=== PATIENT | female | born 1930 | race Caucasian/White ===

== ENCOUNTER 2016-07-26 10:45 | Inpatient (IN) ==
[2016-07-26 11:48] LABS: Basophils # 0.1 10*3/uL (0.0-0.2); Basophils % 0.8 % (0.0-0.8); Eosinophils # 0.1 10*3/uL (0.0-0.87); Hematocrit 41.5 VOL% (35.7-47.0); Hemoglobin 12.8 GM/DL (12.0-16.0); Immature Granulocytes % 0.2 %; Immature Granulocytes Absolute 0.02 #; Lymphocytes # 2.5 10*3/uL (1.4-4.0); Mean Corpuscular HGB Conc 30.8 GM/DL (32-36); Mean Corpuscular Hemoglobin 28 PG (27-34); Mean Corpuscular Volume 91.4 FL (87-102); Monocytes # 0.8 10*3/uL (0.11-0.8); Monocytes % 8.8 % (1.7-12.7); Neutrophils # 5.7 10*3/uL (1.4-7.4); Neutrophils % 62.2 % (38.7-73.9); Platelet Count 234 T/CUMM (130-400); Red Blood Count 4.54 MC/CUMM (3.8-5.5); Red Cell Distribution Width 13.7 % (9.3-17.3); White Blood Count 9.2 T/CUMM (4-12)
[2016-07-26 11:52] LABS: Apearance,Urine CLEAR (Clear); Bilirubin,Urine Negative (Negative); Blood, Urine Negative (Negative); Glucose,Urine (UA) Negative (Negative); Ketones,Urine Negative (Negative); Nitrite,Urine Negative (Negative); Protein,Urine Negative; RBC,Urine <1 /HPF (0-4); Urine Color Yellow (Yellow); Urine Specific Gravity 1.008 (1.001-1.035); Urine Urobilinogen < 2.0 EU/DL (0.2-1.0); WBC,Urine <1 /HPF (0-6)
[2016-07-26 12:14] LABS: Albumin 4.1 G/DL (3.4-5.0); Bilirubin,Total 1.1 MG/DL (0.2-1.0); Calcium 9.9 MG/DL (8.5-10.1); Osmolality,Calculated 287.1 MOS/KG (273-304); Potassium 3.7 MMOL/L (3.5-5.1); Total Protein 7.5 G/DL (6.4-8.3)
--- NOTE | 2016-07-26 12:17 | XRay Report ---
XR abdomen 2V Indication: Abdominal pain. Abdomen 3 views: Comparison none. Scoliosis noted. No small bowel dilatation shown. Some stool and gas is present in the colon. No evidence of free air. Impression: Nonspecific bowel gas pattern. PROCEDURE INTERPRETED AT [facility] DEPARTMENT OF RADIOLOGY Final Report Signed by: Stevie Ruelas M.D.
--- NOTE | 2016-07-26 13:03 | Emergency Department Note ---
Arrival - Arrival Chief Complaint: Non-Specific Stated Complaint: constipated,bladder infection couple wks ago ED Nursing Triage Note: Pt states that she has not had a bowel movement in 3 days - family states that she has been seen here in ER 4 times in last 10 days for similar c/o - pt states that she started taking macrobid x 2 days ago for UTI Mode of Arrival: Wheelchair Source: Patient Time Seen by Provider: 07/26/16 11:11 - History of Present Illness HPI Narrative: 85 y/o female presents to the ER complaining of constipation, dysuria, rectal burning, dark stool, and lower abdominal pain. Symptoms started 2-3 weeks ago. Family states patient has been seen in the ER 4 times in the last 10 days for the similar complaints. Patient states she has been diagnosed with constipation and a UTI. Currently taking laxatives for constipation and Macrobid for UTI but abdominal pain has not improved. Family states they think she needs to be admitted. Past medical history significant for dementia, tachycardia, CHF, HTN, , COPD, GERD, and Hyst. Onset (ago): week(s) (2) Severity: mild Quality: cramping Date of Last Menstrual Period: hyster Allergies/Adverse Reactions: Allergies Allergy/AdvReac Type Severity Reaction Status Date / Time quinine Allergy RASH Verified 12/15/14 16:23 propofol AdvReac Severe TEMP SPIKE Verified 12/15/14 16:57 103/UNRESPONSIVE simvastatin [From Zocor] AdvReac Unknown Unknown/Unable Verified 12/15/14 16:23 to obtain Home Medications: Home Medications Medication Instructions Recorded Confirmed Type Amitriptyline [Elavil] 25 mg PO BEDTIME 08/26/14 07/26/16 History Donepezil [Aricept] 10 mg PO BEDTIME 08/26/14 07/26/16 History Levothyroxine Sodium 75 mcg PO DAILY 08/26/14 07/26/16 History Carvedilol [Coreg] 12.5 mg PO BID W/MEALS #60 tablet 08/29/14 07/26/16 Rx Potassium Chloride Cap/Tab [K Dur] 20 meq PO DAILY #30 tablet 08/29/14 07/26/16 Rx Allopurinol [Zyloprim] 100 mg PO DAILY 10/20/14 07/26/16 History Aspirin Chew Tab 81 mg PO DAILY #30 tablet 10/21/14 07/26/16 Rx Pantoprazole Sodium [Protonix] 40 mg PO DAILY #30 granpkt. 10/21/14 07/26/16 Rx HYDROcodone/ACETAMIN 5-325 [[place] 1 tablet PO Q6H PRN #20 tablet 12/06/15 Rx 5-325] Cyclobenzaprine [Flexeril] 10 mg PO TID #30 tablet 12/14/15 07/26/16 Rx Docusate Sodium Cap [Colace Cap] 100 mg PO BID 12/14/15 07/26/16 History Furosemide Tab [Lasix Tab] 40 mg PO QAM 12/14/15 07/26/16 History Meloxicam [Meloxicam] 7.5 mg PO DAILY 12/14/15 07/26/16 History Clindamycin Cap [Cleocin Cap] 300 mg PO Q8HR #20 capsule 07/21/16 07/26/16 Rx Phenazopyridine HCl [Pyridium] 200 mg PO TID #30 tablet 07/21/16 07/26/16 Rx Nitrofurantoin Macro/[place] 100 mg PO BID 07/26/16 07/26/16 History [Macrobid] Review of System - Review of System 12 point system: reviewed and no additional remarkable complaints except as stated - Review of System Gastrointestinal: Present: abdominal pain, constipation Genitourinary female: Present: dysuria Medical,Surgical,& Family Hx - Medical History Cardio: History of: Cardiac Dysrhythmia (HX TACHYCARDIA/HX ?ATRIAL FIB), CHF, Hypertension, Valvular Heart Disease (AORTIC VALVE DISORDER PER DR. VILLASENOR'S H&P ), Cardiovascular Problems (DR. VILLAFUERTE; CARDIOMYOPATHY) Psychological: History of: Anxiety Disorders Neurology: History of: Dementia No history of: Seizures HEENT: History of: Ear Problem (PARTIAL UPPER AND LOWER?), Eye Problem (GLASSES FOR TV) Endocrine: Comment Only: Diabetes Mellitus (NIDDM) (ELEVATED FASTING GLUCOSE 12/15/14 JACKLYN CLEARANCE) Rheumatology: History of;: Gout Respiratory: History of: Bronchitis, COPD Genitourinary: History of: Recurring Urinary Tract Infections Gastrointestinal: History of: GERD, Gastrointestinal Bleed (DR. CHANEL COULD NOT LOCATE BLEEDING-CONTRIBUTING TO ELIQUIS) Musculoskeletal: History of: Musculoskeletal Problems (ARTHRITIS) Hematology: History of: Anemia No history of: Blood Transfusion Reaction (2 UNITS 08/2014) Other: History of: Anesthesia Reactions (PROPROFAL 103 TEMP UNRESPONSIVE-? MALIGNANT HYPERTHERMIA), Cancer (HX MELANOMA LEG ) - Surgical History Thoracic Surgeries: Patient denies;: Organ Transplant, Lobectomy Abdominal Surgeries: Surgical HX of: Colonoscopy (09/10), EGD (09/10) Reproductive Surgeries: Surgical HX of;: Gynecologic Surgery, Hysterectomy Orthopedic Surgeries: Surgical HX of;: Orthopedic Surgery (CARPAL TUNNEL DELIA / GANGLION CYST REMOVAL LT FOR 11/2014), Spinal Surgery (Back surgery) - Family History Family History: Reports;: Family Diabetes, Family Heart Disease, Family Hypertension Denies;: Family Cancer - Social History Smoking Status: Former smoker Frequency of Alcohol Use: None Type of Drug Use: None Exam Vital Signs: Vital Signs Temperature 98.2 F 07/26/16 11:19 Pulse Rate 57 L 07/26/16 12:30 Respiratory Rate 20 07/26/16 12:30 Blood Pressure 183/65 07/26/16 12:30 O2 Sat by Pulse Oximetry 100 07/26/16 12:30 - General General appearance: alert, in no apparent distress - ENT ENT exam: Present: normal exam, normal oropharynx, mucous membranes moist - Chest Chest inspection: Present: normal inspection - Respiratory Respiratory exam: Present: normal lung sounds bilaterally - Cardiovascular Cardiovascular exam: Present: regular rate, normal rhythm, normal heart sounds - Abdominal Exam Abdominal exam: Present: soft, tenderness (RLQ), rebound, normal bowel sounds - Rectal Exam Rectal exam: Present: normal inspection, normal rectal tone. Absent: fecal impaction - Extremities Exam Extremities exam: Present: normal inspection, full ROM - Back Exam Back exam: Absent: CVA tenderness (R), CVA tenderness (L) - Neurological Exam Neurological exam: Present: alert, oriented X3 - Psychiatric Psychiatric exam: Present: normal affect, normal mood - Skin Skin exam: Present: warm, dry Course - Consultations Consultation #1: Hospitalist Time: 15:00 (Will admit to Hospitalist ) Results - Labs CBC & BMP: 07/26/16 11:33 07/26/16 11:33 Lab Results: I have reviewed the patients labs Labs: UA: WNL - Diagnostic Findings Procedure: KUB x-ray: image reviewed by me, report reviewed by me (no acute abnormality ), CT Abdomen and Pelvis: image reviewed by me, report reviewed by me (right adrenal mass; can not exclude neoplasm) Disposition Clinical Impression: Abdominal pain, Dark stools Case discussed with: patient Disposition: Still a Patient Condition: Stable
--- NOTE | 2016-07-26 13:48 | CT Report ---
CT abdomen pelvis w con Indication: Right lower quadrant abdominal pain, rebound tenderness, dysuria. CT ABDOMEN AND PELVIS WITH CONTRAST DLP: 935 mGy*cm. One or more of the following dose reduction techniques was used: Automated exposure control, adjustment of the mA and/or kV according the patient size, or use of iterative reconstruction techniques. Comparison: None Technique: Axial CT images of the abdomen and pelvis were obtained with IV contrast; Omnipaque 350, 100 cc. Oral contrast was not administered. Abdomen: 15 mm vascular blush along the lateral aspect of the right liver lobe is present, nonspecific. Immediately washes out on delayed images. No solid liver lesion shown. Gallbladder somewhat contracted but unremarkable. Spleen, pancreas, left adrenal gland and left kidney are unremarkable. 16 x 11 mm right adrenal mass is present, 114 Hounsfield units. Cortical scar involves midpole right kidney. Right kidney is otherwise unremarkable. Heart is minimally enlarged. Aside from some mild scarring, lung bases are clear. No bowel obstruction shown. Pelvis: The appendix is not identified. No right lower quadrant inflammation shown focally. Urinary bladder and rectosigmoid colon are unremarkable. No mesenteric inflammation. No free fluid, free air or lymphadenopathy. Aorta is not aneurysmal. Degenerative changes lumbar spine are moderately severe. Impression: 1. No acute intra-abdominal or pelvic pathology. 2. Nonspecific 15 mm vascular blush lateral aspect right liver lobe, with rapid washout. 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 3. 16 x 11 mm right adrenal mass, 114 Hounsfield units. Cannot exclude neoplasm. 6-8 week follow-up CT recommended. 4. Cortical scarring right kidney. PROCEDURE INTERPRETED AT [facility] DEPARTMENT OF RADIOLOGY Final Report Signed by: Stevie Ruelas M.D.
--- NOTE | 2016-07-26 15:27 | Hospitalist History & Physical ---
<Wiliam Canseco - Last Filed: 07/26/16 15:23> Assessment and Plan - Time spent with patient Time spent with patient: Greater than 30 minutes (1) Abdominal pain Status: Acute Assessment and plan: Rebound tenderness to right lower quadrant. Abdominal x-ray negative. CT does reveal 16 x 11 mm mass to the right adrenal gland. Current Visit: Yes (2) Rectal burning Status: Acute Current Visit: Yes (3) Perceived constipation Status: Acute Assessment and plan: Abdominal x-ray reveals nonspecific gas patterns. Patient reports feelings of constipation with continued straining for the last 2 days. We will continue to monitor and consult GI if necessary. Current Visit: Yes History of Present Illness Chief complaint: abdominal pain; constipation History of present illness: Ms. Patel is a 85 year old female with a history significant for UTI, hypertension, CHF, melanoma presents to the ER with complaints of abdominal pain , feelings of constipation, dysuria for approximately 2 days. Patient states that she initially experienced dysuria about 4 weeks ago for which she saw Dr. Cabrera. She reports that this burning sensation continued for approximately 4 weeks until she finally went back to Dr. Cabrera's office and was given a prescription for Macrobid. She states that she has taken Pepto-Bismol and Ex- Lax for her constipation symptoms with little to no relief. She states that she has been straining to use the bathroom for the last 2 days. She does report that the times that she has had a bowel movement, her stool was dark. On exam, the patient is lying in bed in no acute distress. She reports mild abdominal pain rating it 5 out of 10. She does have rebound tenderness to deep palpation to the right lower quadrant. Also of note patient has a significant area of bruising to the left lower quadrant is tender. Patient reports that she fell onto a chair 2 days ago while in the kitchen, sustaining a laceration to her left elbow as well as the bruise mentioned above. Abdominal x-ray reveals nonspecific bowel gas pattern. Abdominal CT reveals a 16 x 11 mm right adrenal mass and cortical scarring on the right kidney. This does not appear to be related to the patient's current complaints. Patient believes she still has her appendix, however she does have a history of hysterectomy. Given the patient's frequent visits to the ER in the last 2 weeks with similar complaints , we will admit her to the hospital medicine service for further evaluation and management of this abdominal pain. Home Medications Medication Instructions Recorded Confirmed Type Amitriptyline [Elavil] 25 mg PO BEDTIME 08/26/14 07/26/16 History Donepezil [Aricept] 10 mg PO BEDTIME 08/26/14 07/26/16 History Levothyroxine Sodium 75 mcg PO DAILY 08/26/14 07/26/16 History Carvedilol [Coreg] 12.5 mg PO BID W/MEALS #60 tablet 08/29/14 07/26/16 Rx Potassium Chloride Cap/Tab [K Dur] 20 meq PO DAILY #30 tablet 08/29/14 07/26/16 Rx Allopurinol [Zyloprim] 100 mg PO DAILY 10/20/14 07/26/16 History Aspirin Chew Tab 81 mg PO DAILY #30 tablet 10/21/14 07/26/16 Rx Pantoprazole Sodium [Protonix] 40 mg PO DAILY #30 granjwkt. 10/21/14 07/26/16 Rx HYDROcodone/ACETAMIN 5-325 [[place] 1 tablet PO Q6H PRN #20 tablet 12/06/15 Rx 5-325] Cyclobenzaprine [Flexeril] 10 mg PO TID #30 tablet 12/14/15 07/26/16 Rx Docusate Sodium Cap [Colace Cap] 100 mg PO BID 12/14/15 07/26/16 History Furosemide Tab [Lasix Tab] 40 mg PO QAM 12/14/15 07/26/16 History Meloxicam [Meloxicam] 7.5 mg PO DAILY 12/14/15 07/26/16 History Clindamycin Cap [Cleocin Cap] 300 mg PO Q8HR #20 capsule 07/21/16 07/26/16 Rx Phenazopyridine HCl [Pyridium] 200 mg PO TID #30 tablet 07/21/16 07/26/16 Rx Nitrofurantoin Macro/[place] 100 mg PO BID 07/26/16 07/26/16 History [Macrobid] Allergies Allergy/AdvReac Type Severity Reaction Status Date / Time quinine Allergy RASH Verified 12/15/14 16:23 propofol AdvReac Severe TEMP SPIKE Verified 12/15/14 16:57 103/UNRESPONSIVE simvastatin [From Zocor] AdvReac Unknown Unknown/Unable Verified 12/15/14 16:23 to obtain Medical,Surgical,& Family Hx - Medical History Cardio: History of: Cardiac Dysrhythmia (HX TACHYCARDIA/HX ?ATRIAL FIB), CHF, Hypertension, Valvular Heart Disease (AORTIC VALVE DISORDER PER DR. VILLASENOR'S H&P ), Cardiovascular Problems (DR. VILLAFUERTE; CARDIOMYOPATHY) Psychological: History of: Anxiety Disorders Neurology: History of: Dementia No history of: Seizures HEENT: History of: Ear Problem (PARTIAL UPPER AND LOWER?), Eye Problem (GLASSES FOR TV) Endocrine: Comment Only: Diabetes Mellitus (NIDDM) (ELEVATED FASTING GLUCOSE 12/15/14 JACKLYN CLEARANCE) Rheumatology: History of;: Gout Respiratory: History of: Bronchitis, COPD Genitourinary: History of: Recurring Urinary Tract Infections Gastrointestinal: History of: GERD, Gastrointestinal Bleed (DR. CHANEL COULD NOT LOCATE BLEEDING-CONTRIBUTING TO ELIQUIS) Musculoskeletal: History of: Musculoskeletal Problems (ARTHRITIS) Hematology: History of: Anemia No history of: Blood Transfusion Reaction (2 UNITS 08/2014) Other: History of: Anesthesia Reactions (PROPROFAL 103 TEMP UNRESPONSIVE-? MALIGNANT HYPERTHERMIA), Cancer (HX MELANOMA LEG ) - Surgical History Thoracic Surgeries: Patient denies;: Organ Transplant, Lobectomy Abdominal Surgeries: Surgical HX of: Colonoscopy (09/10), EGD (09/10) Reproductive Surgeries: Surgical HX of;: Gynecologic Surgery, Hysterectomy Orthopedic Surgeries: Surgical HX of;: Orthopedic Surgery (CARPAL TUNNEL DELIA / GANGLION CYST REMOVAL LT FOR 11/2014), Spinal Surgery (Back surgery) - Family History Family History: Reports;: Family Diabetes, Family Heart Disease, Family Hypertension Denies;: Family Cancer - Social History Smoking Status: Former smoker Frequency of Alcohol Use: None Type of Drug Use: None Marital Status: Lives With:: Granddaughter Functional capacity: independent ambulation - Constitutional Constitutional: Absent: fatigue, fever(s), frequent falls, headache(s) - EENT Eyes: Absent: blurry vision, loss of vision Ears: Absent: decreased hearing, ear pain Nose, mouth and throat: Absent: dysphagia, epistaxis, headache(s) - Cardiovascular Cardiovascular: Absent: chest pain at rest, chest pain with activity, dyspnea, dyspnea on exertion - Respiratory Respiratory: Absent: cough, dyspnea, wheezing - Gastrointestinal Gastrointestinal: Present: abdominal pain, constipation, melena, nausea - Genitourinary Genitourinary: Present: dysuria. Absent: difficulty urinating, flank pain, hematuria - Musculoskeletal Musculoskeletal: Absent: back pain, muscle cramps - Neurological Neurological: Absent: abnormal gait, abnormal speech, behavioral changes, confusion, headache(s), numbness, syncope - Psychiatric Psychiatric: Absent: anxiety, confusion, depression - Endocrine Endocrine: Absent: cold intolerance, fatigue, heat intolerance - Hematologic/Lymphatic Hematologic/Lymphatic: Absent: easy bleeding, easy bruising Exam - Constitutional Vitals: Period Temp Pulse Resp BP Sys/[place] Pulse Ox Last 24 Hr 98.1 F-98.2 F 57-69 18-20 163-183/65-75 96-100 Exam: General appearance: normal weight, no acute distress - Head Head exam: Present: normocephalic, atraumatic - Eye Eye exam: Present: EOMI. Absent: conjunctival injection, nystagmus Pupils: Present: MIL[place], normal accommodation - ENT ENT exam: Present: normal exam, normal external ear exam - Neck Neck exam: Present: normal inspection. Absent: lymphadenopathy, tenderness, thyromegaly - Respiratory Respiratory exam: Present: clear to auscultation bilaterally. Absent: rales, rhonchi, wheezes - Cardiovascular Cardiovascular exam: Present: regular rate and rhythm. Absent: carotid bruit, gallop, rubs - GI/Abdominal GI/Abdominal exam: Present: hyperactive bowel sounds. Absent: ascites, distended, mass - Extremities Exam Extremities exam: Present: normal inspection, normal capillary refill. Absent: edema - Back Exam Back exam: Absent: CVA tenderness (L), CVA tenderness (R) - Neurological Exam Neurological exam: Present: alert, oriented X3 - Psychiatric Psychiatric exam: Present: normal affect, normal mood - Skin Skin exam: Present: ecchymosis to LLQ, laceration to left elbow, warm, dry Results - Labs CBC & BMP: 07/26/16 11:33 07/26/16 11:33 Lab Results: I have reviewed the past 24 hour labs - Diagnostic Findings Procedure: Abdominal x-ray: image reviewed by me, report reviewed by me, CT Abdomen and Pelvis: image reviewed by me, report reviewed by me <Beck Rojas - Last Filed: 07/26/16 16:42> Assessment and Plan - Time spent with patient Time spent with patient: Less than 30 minutes History of Present Illness History of present illness: Patient seen and examined along with SERGIO Canseco, agree with history, assessment and plan as documented. Patient has been on macrobid for 2 days to treat a urinary tract infection. Her pain is in the lower abdomen, band like pattern. She reports diarrhea 3+ days ago, followed by constipation now. Her KUB and CT are actually unimpressive for bowel or any other acute process. She also reports vomiting a clear liquid today. Exam - Constitutional Vitals: Period Temp Pulse Resp BP Sys/[place] Pulse Ox Last 24 Hr 98.1 F-98.2 F 57-69 18-20 163-183/65-75 96-100 Results - Labs CBC & BMP: 07/26/16 11:33 07/26/16 11:33
[2016-07-26] MEDS ORDERED: SIMETHICONE CHEW 125 MG TABLET PO PRN (18:00)
[2016-07-26] MEDS ORDERED: LACTULOSE 20 GM/30 ML UDCUP PO PRN (18:00)
[2016-07-26] MEDS ORDERED: ENOXAPARIN 40 MG/0.4 ML SYRINGE SUBCUT SCH (18:00)
[2016-07-26] MEDS ORDERED: ONDANSETRON 4 MG/2 ML VIAL IV PRN (18:00)
[2016-07-26] MEDS ORDERED: ACETAMINOPHEN 325 MG TABLET PO PRN (18:00)
[2016-07-26] MEDS: SODIUM CHLORIDE 0.9% 1,000 ML IV SCH (18:19)
[2016-07-26] MEDS: CARVEDILOL 12.5 MG TABLET PO SCH (18:42)
[2016-07-26] MEDS: CIPROFLOXACIN INJ 400 MG in PREMIX 1 EACH IV SCH (18:43)
[2016-07-26] MEDS: DOCUSATE SODIUM 100 MG CAPSULE PO SCH (20:11)
[2016-07-26] MEDS ORDERED: DONEPEZIL 10 MG TABLET PO SCH (21:00)
[2016-07-26] MEDS ORDERED: AMITRIPTYLINE 25 MG TABLET PO SCH (21:00)
[2016-07-27 03:38] LABS: Basophils # 0.1 10*3/uL (0.0-0.2); Basophils % 0.9 % (0.0-0.8); Eosinophils # 0.1 10*3/uL (0.0-0.87); Eosinophils % 1.9 % (0.00-10.9); Hematocrit 36.6 VOL% (35.7-47.0); Hemoglobin 11.3 GM/DL (12.0-16.0); Immature Granulocytes % 0.3 %; Immature Granulocytes Absolute 0.02 #; Lymphocytes # 2.7 10*3/uL (1.4-4.0); Lymphocytes % 39.2 % (21.3-54.2); Mean Corpuscular HGB Conc 30.9 GM/DL (32-36); Mean Corpuscular Hemoglobin 28 PG (27-34); Mean Platelet Volume 11.8 FL (9.6-12.0); Monocytes # 0.8 10*3/uL (0.11-0.8); Monocytes % 11.3 % (1.7-12.7); Neutrophils # 3.2 10*3/uL (1.4-7.4); Neutrophils % 46.4 % (38.7-73.9); Platelet Count 221 T/CUMM (130-400); Red Blood Count 4.02 MC/CUMM (3.8-5.5); White Blood Count 6.9 T/CUMM (4-12)
[2016-07-27 04:21] LABS: Calcium 9.1 MG/DL (8.5-10.1)
[2016-07-27 04:22] LABS: Osmolality,Calculated 285.1 MOS/KG (273-304); Potassium 3.8 MMOL/L (3.5-5.1); Thyroid Stimulating Hormone 2.37 uIU/ml (0.358-3.74)
[2016-07-27] MEDS: SODIUM CHLORIDE 0.9% 1,000 ML IV SCH (05:52)
[2016-07-27] MEDS: CIPROFLOXACIN INJ 400 MG in PREMIX 1 EACH IV SCH (05:53)
[2016-07-27] MEDS ORDERED: ASPIRIN CHEW 81 MG TABLET PO SCH (09:00)
[2016-07-27] MEDS ORDERED: LEVOTHYROXINE 75 MCG TABLET PO SCH (09:00)
[2016-07-27] MEDS ORDERED: ALLOPURINOL 100 MG TABLET PO SCH (09:00)
[2016-07-27] MEDS ORDERED: PANTOPRAZOLE 40 MG TABLET PO SCH (09:00)
[2016-07-27 09:09] VITALS: BP 172/71
[2016-07-27] MEDS: DOCUSATE SODIUM 100 MG CAPSULE PO SCH (09:50)
[2016-07-27] MEDS: CARVEDILOL 12.5 MG TABLET PO SCH (09:50)
--- NOTE | 2016-07-27 10:04 | Discharge Summary ---
<Isabel Wallace - Last Filed: 07/27/16 10:11> Hospital Course - Hospital Course Hospital Course: Ms. Patel is a 85 yr old female patient that presented to the ED with complaints of dark stool, rectal, and lower abdominal pain. Pt has a pmh of dementia, tachycardia, CHF, htn, COPD, GERD, and hysterectomy. Pt. stated that the symptoms started 2-3 weeks ago. Pt. also reports receiving presciption for Macrobid from Dr. Pantoja because of issues with dysuria. Pt. and family reported that the pt has been seen in the ER 4 times in the past 10 days for similar complaints. Abdominal x-ray in ER reveals nonspecific bowel gas pattern. Abdominal CT reveals a 16 x 11 mm right adrenal mass and cortical scarring on the right kidney is not believed to be related to the current symptoms. Due to the frequent visits to the ED, the patient was admitted to the hospitalist program. The patient had no complaints overnight and reported bowel movements to the MD. Pt was stable this am and is ready for discharge. Pt. is to follow up with PCP Dr. Michelle in 1 week for evaluation in reference to the mass. Specialty Discharge - Follow Up or Referrals Follow up with: Rocco Michelle MD [Primary Care Provider] - 1 Week Discharge Plan - Discharge Medications New Docusate Sodium Cap [Colace Cap] 100 mg PO BID capsule Continue Amitriptyline [Elavil] 25 mg PO BEDTIME Levothyroxine Sodium 75 mcg PO DAILY Donepezil [Aricept] 10 mg PO BEDTIME Carvedilol [Coreg] 12.5 mg PO BID W/MEALS #60 tablet Potassium Chloride Cap/Tab [K Dur] 20 meq PO DAILY #30 tablet Allopurinol [Zyloprim] 100 mg PO DAILY Aspirin Chew Tab 81 mg PO DAILY #30 tablet Pantoprazole Sodium [Protonix] 40 mg PO DAILY #30 granpkt. HYDROcodone/ACETAMIN 5-325 [[place] 5-325] 1 tablet PO Q6H PRN #20 tablet PRN Reason: Pain Docusate Sodium Cap [Colace Cap] 100 mg PO BID Furosemide Tab [Lasix Tab] 40 mg PO QAM Meloxicam 7.5 mg PO DAILY Cyclobenzaprine [Flexeril] 10 mg PO TID #30 tablet Nitrofurantoin Macro/[place] [Macrobid] 100 mg PO BID Discontinued Phenazopyridine HCl [Pyridium] 200 mg PO TID #30 tablet Clindamycin Cap [Cleocin Cap] 300 mg PO Q8HR #20 capsule - Follow Up or Referral - Forms/Instructions Exam - Constitutional Vitals: Period Temp Pulse Resp BP Sys/[place] Pulse Ox Last 24 Hr 97.3 F-98.3 F 59-79 16-20 99-189/68-98 91-98 Discharge Results Procedures and tests throughout hospitalization: Pending Orders 07/26/16 18:00 Occult Blood, Stool Routine Labs on day of discharge: Labs from last 24 hours 07/27/16 07/27/16 07/26/16 02:54 02:54 20:24 WBC 6.9 RBC 4.02 Hgb 11.3 L Hct 36.6 MCV 91.0 MCH 28 MCHC 30.9 L RDW 14.0 Plt Count 221 MPV 11.8 Neut % (Auto) 46.4 Lymph % (Auto) 39.2 [place] % (Auto) 11.3 Eos % (Auto) 1.9 Baso % (Auto) 0.9 H Neut # (Auto) 3.2 Lymph # (Auto) 2.7 [place] # (Auto) 0.8 Eos # (Auto) 0.1 Baso # (Auto) 0.1 Immature Gran % 0.3 Nucleated RBC % 0.0 Immature Gran # 0.02 Nucleated RBCs # 0.00 Sodium 142 Potassium 3.8 Chloride 104 Carbon Dioxide 29 Anion Gap 12.8 BUN 17 Creatinine 0.90 GFR Calculation 60 BUN/Creatinine Ratio 18.00 Glucose 121 H Calculated Osmolality 285.1 Calcium 9.1 Lipase 194.0 TSH 3rd Generation 2.370 DS: Provider Date of admission: 07/26/16 14:23 Primary care physician: Rocco Michelle MD Attending physician on admission: Beck Rojas MD Consults: 07/26/16 18:11 Consult to Pharmacy [CONS] Routine Reason for Pharmacy Consult: Adjust Meds Renal Funct 07/26/16 18:17 Consult to Pastoral Services [CONS] Routine Comment: Pastoral Screen: Declines Visit Pastoral Screen Source of Request: Patient Discharging clinician: Isabel Wallace NP <Beck Rojas - Last Filed: 07/27/16 10:21> Hospital Course - Hospital Course Hospital Course: Patient seen and examined along with HIGH MAN Wallace, agree with hospital course as documented. - Time spent with patient Time with patient DS: Less than 30 minutes Diagnosis - Discharge Diagnosis (1) Constipation Status: Chronic (2) Abdominal pain Status: Chronic Discharge Plan - Discharge Data Condition at Discharge: Stable Discharge Diet: advance to your usual diet Activity: resume usual activities as tolerated Hygiene: no restrictions Weight Bearing at Discharge: weight bear as tolerated Contact your physician if you experience:: fever over 101, Nausea/Vomiting Exam - Constitutional General appearance: over weight - Head Head exam: Present: normocephalic, atraumatic - Eye Eye exam: Present: EOMI Pupils: Present: MILAGRO - ENT ENT exam: Present: normal exam - Neck Neck exam: Present: normal inspection. Absent: tenderness - Respiratory Respiratory exam: Present: clear to auscultation bilaterally. Absent: rhonchi, wheezes - Cardiovascular Cardiovascular exam: Present: regular rate and rhythm - GI/Abdominal GI/Abdominal exam: Present: normal bowel sounds, soft. Absent: tenderness, rebound - Extremities Exam Extremities exam: Present: normal inspection - Back Exam Back exam: Present: normal inspection - Neurological Exam Neurological exam: Present: alert - Psychiatric Psychiatric exam: Present: normal affect, normal mood - Skin Skin exam: Present: warm, intact
== END 2016-07-27 12:40 | disposition home or self-care (01) | DRG 392 ==
LOC: N.ED 10:45 → N.EDINP 14:23 → N.2E 17:53
PROVIDERS: ADMIT Internal Medicine; ATTEND Internal Medicine